=== PATIENT | male | born 1955 | race Caucasian/White ===

== ENCOUNTER 2020-07-22 14:38 | Emergency (ER) | payer MEDICAID ==
[~2020-07-22] VITALS: Ht 170.2 cm; Wt 80.3 kg
--- NOTE | 2020-07-22 15:10 | NUR ---
LOWER BACK PAIN S/P [facility] AT [facility]. PATIENT A/OX4, BREATHING EVEN AND UNLABORED. NO SOB NOTED.
--- NOTE | 2020-07-22 15:15 | NUR ---
LOWER BACK PAIN S/P GL[facility] AT [facility]. PATIENT A/OX4, BREATHING EVEN AND UNLABORED, NO SOB NOTED, NEEDS ATTENDED, KEPT COMFORTABLE.
--- NOTE | 2020-07-22 15:20 | NUR ---
PATIENT TAKEN TO CT.
[2020-07-22] MEDS ORDERED: FENTANYL PF 100MCG/2ML AMPUL ONE (15:25)
--- NOTE | 2020-07-22 15:25 | NUR ---
PATIENT SEEN AND EXAMINED BY DR. RAMIREZ.
[2020-07-22] MEDS ORDERED: FENTANYL PF 100MCG/2ML AMPUL IM ONE (15:30)
--- NOTE | 2020-07-22 16:20 | NUR ---
[facility]. ETA [id number]
--- NOTE | 2020-07-22 18:13 | NUR ---
REPORT GIVEN TO CRYSTAL ANDERSON AT [facility].
--- NOTE | 2020-07-22 19:00 | NUR ---
REPORT GIVEN TO EMS, PATIENT A/OX4, IN STABLE CONDITION. NO DISTRESS NOTED. NEEDS ATTENDED. KEPT COMFORTABLE.
--- NOTE | 2020-07-22 19:01 | NUR ---
Patient discharged to SNF in stable condition. Written and verbal after care instructions given. Patient verbalizes understanding of instruction.
[2020-07-22 19:02] VITALS: BP 116/75
== END 2020-07-22 19:02 ==
LOC: ER 14:43
DX: S09.8XXA Other specified injuries of head, initial encounter (principal); N48.1 Balanitis; M25.551 Pain in right hip; R51 Headache; Z89.612 Acquired absence of left leg above knee; Z89.611 Acquired absence of right leg above knee; W18.39XA Other fall on same level, initial encounter; Y93.89 Activity, other specified; Y92.89 Other specified places as the place of occurrence of the external cause; Y99.8 Other external cause status
CPT/HCPCS: 70450; 72125; 73502; 96372; 99285; J3010

== ENCOUNTER 2020-08-30 19:03 | Emergency (ER) | payer MEDICAID, OTHER ==
[~2020-08-30] VITALS: Ht 170.2 cm; Wt 80.3 kg
--- NOTE | 2020-08-30 19:20 | NUR ---
VICKY FROM [facility] S/P WITNESSED GLF X6HR [employer] WORK[employer]. +HEAD INJ, -KO C/O HEADACHE, NECK PAIN, L SHOULDER,HIP PAIN.LAST DOSE NORCO 5/325 @ 1430. PT WAS PLACED IN BED 4, ON MONITOR. VSS. WILL CONT TO MONITOR,
[2020-08-30] MEDS ORDERED: ACETAMINOPHEN 325 MG TABLET PO ONE (19:30)
[2020-08-30] MEDS ORDERED: ACETAMINOPHEN ES 500 MG TABLET ONE (19:52)
--- NOTE | 2020-08-30 19:54 | NUR ---
RADIOLOGY AT BEDSIDE FOR XRAY
--- NOTE | 2020-08-30 20:12 | NUR ---
PT WAS TAKEN FOR CT
--- NOTE | 2020-08-30 21:34 | NUR ---
[facility] CALLED FOR TRANSPORT. ETA PENDING. TRPI#[id number]
--- NOTE | 2020-08-30 21:58 | NUR ---
[facility] ETA [id number]
--- NOTE | 2020-08-30 22:35 | NUR ---
[facility] AT THE BED SIDE., REPORT GIVEN
--- NOTE | 2020-08-30 22:40 | NUR ---
Patient discharged to home in stable condition. Written and verbal after care instructions given. Patient verbalizes understanding of instruction. pt was picked up w. the ambulance and transferred back to the facility
[2020-08-30 23:23] VITALS: BP 119/68
== END 2020-08-30 22:40 | disposition home or self-care (01) ==
LOC: ER 19:04
DX: S09.8XXA Other specified injuries of head, initial encounter (principal); R51.9 Headache, unspecified; M54.2 Cervicalgia; M25.512 Pain in left shoulder; M25.552 Pain in left hip; M79.671 Pain in right foot; R11.2 Nausea with vomiting, unspecified; E11.9 Type 2 diabetes mellitus without complications; I10 Essential (primary) hypertension; Z89.512 Acquired absence of left leg below knee; W18.39XA Other fall on same level, initial encounter; Y93.89 Activity, other specified; Y92.89 Other specified places as the place of occurrence of the external cause; Y99.8 Other external cause status
CPT/HCPCS: 70450-TC; 72125-TC; 73030-TC; 73502; 73630-TC

== ENCOUNTER 2023-04-05 17:02 | Emergency (ER) | payer OTHER ==
[~2023-04-05] VITALS: Ht 165.1 cm; Wt 84.4 kg
--- NOTE | 2023-04-05 17:35 | NUR ---
ankur, from snf, R leg edema x today
--- NOTE | 2023-04-05 17:50 | NUR ---
IV INSERTED AT LAC 20 G, BLD DRAWN AND SENT TO LAB.
--- NOTE | 2023-04-05 17:59 | NUR ---
DR QUINN AT BEDSIDE FRO EVAL
--- NOTE | 2023-04-05 18:11 | NUR ---
DUPLEX VENOUS TECH AT BEDSIDE
[2023-04-05 19:00] LABS: BASOPHILS % (AUTO) 0.5 % (0.0-2.0); EOSINOPHILS % (AUTO) 2.2 % (0.0-6.0); HEMATOCRIT 43 % (39-51); HEMOGLOBIN 14.2 g/dL (13.5-17.5); LYMPHOCYTES % (AUTO) 28.6 % (20.0-44.0); MEAN CORPUSCULAR HGB CONC 33 g/dl (31.0-36.0); MEAN CORPUSCULAR VOLUME 81 fL (80-96); MONOCYTES # (AUTO) 0.5 K/uL (0.1-1.30); MONOCYTES % (AUTO) 7.1 % (2.0-12.0); NEUTROPHILS # (AUTO) 4.4 K/uL (1.8-8.9); NEUTROPHILS % (AUTO) 61.6 % (43.0-81.0); PLATELET COUNT (AUTO) 219 K/uL (150-450); RED BLOOD CELL COUNT(AUTO) 5.38 MIL/uL (4.5-6.0); WHITE BLOOD COUNT (AUTO) 7.1 K/uL (4.3-11.0)
[2023-04-05 19:18] LABS: CALCIUM, SERUM 9.1 mg/dL (8.5-10.1); CREATININE 0.6 mg/dL (0.6-1.3); POTASSIUM 4.1 mmol/L (3.5-5.1)
--- NOTE | 2023-04-05 19:18 | NUR ---
PT GAVE REPORT TO MONICA BOJORQUEZ FOR [facility]
--- NOTE | 2023-04-05 19:32 | NUR ---
URINE SAMPLE COLLECTED AND SENT TO LAB
[2023-04-05 19:33] LABS: ALBUMIN 3.6 g/dL (3.4-5.0); BILIRUBIN,DIRECT 0.1 mg/dL (0.0-0.2); BILIRUBIN,TOTAL 0.4 mg/dL (0.2-1.0); TOTAL PROTEIN, SERUM 8.5 g/dL (6.4-8.2)
[2023-04-05 19:52] LABS: BILIRUBIN,URINE NEGATIVE (NEGATIVE); COLOR,URINE YELLOW (YELLOW); LEUKOCYTE ESTERASE ,URINE NEGATIVE (NEGATIVE); NITRITE, URINE NEGATIVE (NEGATIVE); PROTEIN,URINE 1+ mg/dl (NEGATIVE); UGLUCOSE NEGATIVE (NEGATIVE); UROBILINOGEN,URINE 0.2 EU/dL (0.2)
[2023-04-05] MEDS ORDERED: FURO-145 PO (19:58)
[2023-04-05] MEDS ORDERED: MORPHINE SULFATE INJ 4 MG/ML DISP.SYRIN ONE (19:59)
[2023-04-05] MEDS ORDERED: MORPHINE SULFATE INJ 2 MG/ML DISP.SYRIN IV ONE (20:00)
[2023-04-05] MEDS ORDERED: FUROSEMIDE 20 MG TABLET PO ONE (20:00)
[2023-04-05 20:04] LABS: BACTERIA,URINE None seen /HPF (None Seen); MUCUS,URINE Few /LPF (None Seen); RBC,URINE 0-2 /HPF (0-2); SQUAMOUS EPITHELIAL CELL,UR None Seen /HPF (None Seen); WBC,URINE NONE SEEN /HPF (0-3)
[2023-04-05] MEDS ORDERED: FUROSEMIDE 20 MG TABLET ONE (20:10)
--- NOTE | 2023-04-05 20:21 | NUR ---
[facility] CALLED FOR BLS TRANSPORT ETA 45-60 MINUTES.
--- NOTE | 2023-04-05 21:06 | NUR ---
IV removed. Catheter intact and site benign. Pressure and 4x4 applied to site. No bleeding noted.
--- NOTE | 2023-04-05 21:07 | NUR ---
PATIENT PICKED UP BY [facility] [address] FOR TRANSFER BACK TO [facility] DISCHARGE PAPER SIGNED BY EMT MARLEN OF [facility] TRANSPORT
--- NOTE | 2023-04-05 21:17 | NUR ---
GAVE REPORT TO [facility]
[2023-04-05 21:18] VITALS: BP 170/85
--- NOTE | 2023-04-05 21:27 | NUR ---
Patient discharged to home in stable condition. Written and verbal after care instructions given. Patient verbalizes understanding of instruction.
== END 2023-04-05 21:28 ==
LOC: ER 17:03
DX: M79.89 Other specified soft tissue disorders (principal); I10 Essential (primary) hypertension; E11.9 Type 2 diabetes mellitus without complications; F32.A Depression, unspecified; D64.9 Anemia, unspecified
CPT/HCPCS: 99285; 96374; 93971; 85025; 80048; 80076; 81001; 36415; 83880; J2270